=== PATIENT | female | born 1990 | race Caucasian/White ===

== ENCOUNTER 2016-08-06 11:57 | Emergency (ER) | payer SELFPAY ==
[2016-08-06] MEDS ORDERED: ONDANSETRON 4 MG TAB.RAPDIS PO ONE (12:34)
--- NOTE | 2016-08-06 12:36 | ER Document Report ---
ED Medical Screen (RME) - General Stated Complaint: VAGINAL PAIN Notes: Patient complains of severe stomach pain, shaking, vomiting, back pain, vaginal pain, and pain with urination that started about 2 hours ago. Denies fever. Patient does report vaginal discharge. No diarrhea. I have greeted and performed a rapid initial assessment of this patient. A comprehensive ED assessment and evaluation of the patient, analysis of test results and completion of the medical decision making process will be conducted by additional ED providers. TRAVEL OUTSIDE OF THE [place] IN LAST 30 DAYS: No - Related Data Allergies/Adverse Reactions: IV contrast Dye Allergy (Uncoded 08/06/16 12:32) Past Medical History Renal/ Medical History: Reports: Hx Ovarian Cysts. Denies: Hx Peritoneal Dialysis Past Surgical History: Reports: Hx Gynecologic Surgery - Removal R fallopian tube August 2015. Multiple lap surgery for endometriosis Physical Exam - Vital signs Vitals: Temp Pulse Resp BP Pulse Ox 98.6 F 100 20 107/63 97 08/06/16 12:08/06/16 12:08/06/16 12:08/06/16 12:08/06/16 12:29 - Abdominal Inspection: Normal Tenderness: Tender - Diffuse tenderness, pain increased to palpation in the left lower quadrant. Course - Vital Signs Vital signs: Temp Pulse Resp BP Pulse Ox 98.6 F 100 20 107/63 97 08/06/16 12:29 08/06/16 12:29 08/06/16 12:29 08/06/16 12:29 08/06/16 12:29
[2016-08-06 13:07] LABS: ABSOLUTE LYMPHOCYTES (AUTO) 1.1 10^3/uL (0.5-4.7); ABSOLUTE MONOCYTES (AUTO) 0.5 10^3/uL (0.1-1.4); ABSOLUTE NEUT (AUTO) 6.1 10^3/uL (1.7-8.2); BASOPHILS % (AUTO) 0.2 % (0-2); EOSINOPHILS % (AUTO) 0.6 % (0-6); HEMATOCRIT 39.7 % (36.0-47.0); HEMOGLOBIN 13.7 g/dL (12.0-15.5); HGB HCT DIFFERENCE 1.4; LYMPHOCYTES % (AUTO) 14.4 % (13-45); MEAN CORPUSCULAR HEMOGLOBIN 29.6 pg (27.0-33.4); MEAN CORPUSCULAR HGB CONC 34.4 g/dL (32.0-36.0); MEAN CORPUSCULAR VOLUME 86 fl (80-97); RED BLOOD COUNT 4.62 10^6/uL (3.72-5.28); RED CELL DISTRIBUTION WIDTH 12.7 % (11.5-14.0); SEGMENTED NEUTROPHILS % (AUTO) 78.8 % (42-78); WHITE BLOOD COUNT 7.7 10^3/uL (4.0-10.5)
[2016-08-06 13:30] LABS: ALANINE AMINOTRANSFERASE 23 U/L (9-52); ALBUMIN 4.4 g/dL (3.5-5.0); ALKALINE PHOSPHATASE 46 U/L (38-126); ANION GAP 13 (5-19); ASPARTATE AMINO TRANSFERASE 16 U/L (14-36); BILIRUBIN,DIRECT 0.1 mg/dL (0.0-0.4); BILIRUBIN,TOTAL 0.4 mg/dL (0.2-1.3); BLOOD UREA NITROGEN 12 mg/dL (7-20); CALCIUM 9.7 mg/dL (8.4-10.2); CARBON DIOXIDE 28 mmol/L (22-30); CHLORIDE 103 mmol/L (98-107); GLUCOSE 98 mg/dL (75-110); LIPASE 74.1 U/L (23-300); POTASSIUM 4.5 mmol/L (3.6-5.0); SODIUM 143.6 mmol/L (137-145); TOTAL PROTEIN 7.2 g/dL (6.3-8.2)
[2016-08-06 14:25] LABS: AMORPHOUS SEDIMENT,URINE TRACE /HPF; APPEARANCE,URINE CLOUDY; BILIRUBIN,URINE NEGATIVE (NEGATIVE); GLUCOSE, URINE NEGATIVE (NEGATIVE); KETONES,URINE NEGATIVE (NEGATIVE); LEUKOCYTE ESTERASE,URINE NEGATIVE (NEGATIVE); NITRITE,URINE NEGATIVE (NEGATIVE); PROTEIN,URINE NEGATIVE (NEGATIVE); URINE SPECIFIC GRAVITY 1.015; UROBILINOGEN,URINE NEGATIVE mg/dL (<2.0)
[2016-08-06 15:19] LABS: CHLAM PCR NOT DETECTED (NOT DETECT)
[2016-08-06] MEDS ORDERED: HYDROCODONE/ACETAMINOPHEN 5-325 MG TABLET PO ONE (19:41)
--- NOTE | 2016-08-06 21:44 | ER Document Report ---
ED GI/ - General Chief Complaint: Abdominal Pain Stated Complaint: VAGINAL PAIN Mode of Arrival: Ambulatory Information source: Patient Notes: 26-year-old female presents to the emergency department complaining of lower abdominal/pelvic pain that began approximately 11:00 this morning. Patient reports sudden onset of sharp/burning pain to lower pelvic area L>R. Reports had associated nausea and felt like pain radiates to her lower back. Also states had some dysuria which started after the pain. Reports has had some thin whitish foul-smelling vaginal discharge over the last 2 weeks. States was treated for chlamydia approximately 3 months ago but had different symptoms at the time however reports has been sexually active with same partner and is unsure if he has been tested/treated. Denies fever, hematuria, vaginal bleeding , or blood in stool. 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 TRAVEL OUTSIDE OF THE [place] IN LAST 30 DAYS: No - HPI Patient complains to provider of: Dysuria, Pelvic pain, Vaginal discharge Onset: This morning Timing/Duration: Sudden Quality of pain: Burning, Sharp Severity at maximum: Severe Severity in ED: Moderate Pain Level: 2 Vaginal bleeding (Compared to normal period): None Sexual history: Active. denies: New partner, Multiple partners Similar symptoms previously: Yes Recently seen / treated by doctor: No - Related Data Allergies/Adverse Reactions: IV contrast Dye Allergy (Uncoded 08/06/16 12:32) Past Medical History - General Information source: Patient - Social History Smoking Status: Smoker,Current Status Unk Chew tobacco use (# tins/day): No Frequency of alcohol use: Occasional Drug Abuse: None Lives with: Family Family History: Reviewed & Not Pertinent Patient has suicidal ideation: No Patient has homicidal ideation: No Renal/ Medical History: Reports: Hx Ovarian Cysts. Denies: Hx Peritoneal Dialysis Past Surgical History: Reports: Hx Appendectomy, Hx Gynecologic Surgery - Removal R fallopian tube August 2015. Multiple lap surgery for endometriosis - Immunizations Hx Diphtheria, Pertussis, Tetanus Vaccination: Yes Review of Systems - Review of Systems Constitutional: No symptoms reported EENT: No symptoms reported Cardiovascular: No symptoms reported Respiratory: No symptoms reported Gastrointestinal: See HPI Genitourinary: See HPI Female Genitourinary: See HPI Musculoskeletal: No symptoms reported Skin: No symptoms reported Hematologic/Lymphatic: No symptoms reported Neurological/Psychological: No symptoms reported -: Yes All other systems reviewed and negative Physical Exam - Vital signs Vitals: Temp Pulse Resp BP Pulse Ox 98.6 F 100 20 107/63 97 08/06/16 12:29 08/06/16 12:29 08/06/16 12:29 08/06/16 12:29 08/06/16 12:29 - General General appearance: Appears well, Alert In distress: None - HEENT Head: Normocephalic, Atraumatic Eyes: Normal Pupils: PERRL - Respiratory Respiratory status: No respiratory distress Chest status: Nontender Breath sounds: Normal Chest palpation: Normal - Cardiovascular Rhythm: Regular Heart sounds: Normal auscultation Murmur: No Pulses: Normal: Radial Normal capillary refill: Yes - Abdominal Inspection: Normal Distension: No distension Bowel sounds: Normal Tenderness: Tender - Mild tenderness to palpation to mid and left lower abdomen/ pelvic area.. No: McBurney's point, Mcgregor's sign, Guarding, Rebound, Other Organomegaly: No organomegaly - Genitourinary External exam: Normal. No: Lesions, Laceration, Bruising, Vesicles Speculum exam: Cervix closed, Vaginal discharge - Moderate amount of whitish thin discharge. No: Lesions, Vaginal lacerations Vaginal bleeding: None Bimanuel exam: Adnexal tenderness - Mild left. No: Cervical motion tender - Back Back: Normal, Nontender. No: CVA tenderness - Extremities General upper extremity: Normal inspection, Nontender, Normal color, Normal ROM , Normal strength, Normal temperature General lower extremity: Normal inspection, Nontender, Normal color, Normal ROM , Normal strength, Normal temperature, Normal weight bearing - Neurological Neuro grossly intact: Yes Cognition: Normal Orientation: AAOx4 Cecil Coma Scale Eye Opening: Spontaneous Cecil Coma Scale Verbal: Oriented Cecil Coma Scale Motor: Obeys Commands [place] Coma Scale Total: 15 Speech: Normal Motor strength normal: LUE, RUE, LLE, RLE Sensory: Normal - Psychological Associated symptoms: Normal affect, Normal mood - Skin Skin Temperature: Warm Skin Moisture: Dry Skin Color: Normal Course - Re-evaluation Re-evalutation: 08/06/16 21:50 Patient hemodynamically stable, in no distress, afebrile, nontoxic, and appears well-hydrated. Labs unremarkable. UA not suggestive of UTI. HCG negative. Wet mount and physical exam findings suggestive of bacterial vaginosis. Negative Trichomonas and negative urine Chlamydia/gonorrhea. CT scan shows small amount of pelvic free fluid likely physiologic. Patient is very well- appearing with physical exam findings not suggestive of pid or other emergent infectious or WALL SCRAPER/GI etiology at this time. Discussed possible ovarian cyst rupture as one of the possible causes of the pain with patient. Patient appears stable for discharge at this time and agrees with home care, follow-up, and ED return precautions. - Vital Signs Vital signs: Temp Pulse Resp BP Pulse Ox 98.6 F 75 16 112/67 97 08/06/16 22:24 08/06/16 22:24 08/06/16 22:24 08/06/16 22:24 08/06/16 22:24 - Laboratory Result Diagrams: 08/06/16 12:50 08/06/16 12:50 Laboratory results interpreted by me: 08/06/16 12:50 Seg Neutrophils % 78.8 H - Diagnostic Test Radiology reviewed: Image reviewed, Reports reviewed Discharge - Discharge Clinical Impression: Pelvic pain, Bacterial vaginosis Condition: Stable Disposition: HOME, SELF-CARE Instructions: Pelvic Pain ([facility]), Vaginosis, Bacterial ([facility]), Metronidazole ([facility] ), Abdominal Pain ([facility]), Anti-Inflammatory Medication ([facility]) Additional Instructions: Establish care and follow-up with [facility] this week. Return to the Emergency Department for any worsening symptoms or concerns. Prescriptions: Metronidazole 500 mg PO BID 7 Days Naproxen 500 mg PO BIDP PRN #10 tablet PRN Reason: Referrals: [facility] [Provider Group] - Follow up in 3-5 days
[2016-08-06 22:27] VITALS: BP 112/67
[2016-08-06 22:59] LABS: CHLAM PCR NOT DETECTED (NOT DETECT)
== END 2016-08-06 22:24 | disposition home or self-care (01) ==
LOC: ER 11:57
DX: N76.0 Acute vaginitis (principal); B96.89 Other specified bacterial agents as the cause of diseases classified elsewhere; R10.2 Pelvic and perineal pain; R11.0 Nausea; R30.0 Dysuria; Z87.42 Personal history of other diseases of the female genital tract; Z90.79 Acquired absence of other genital organ(s); Z91.041 Radiographic dye allergy status; Z90.49 Acquired absence of other specified parts of digestive tract
CPT/HCPCS: 99284; 36415; 87070; 87205; 87210; 84702; 83690; 85025; 80053; 81001; 87491; 87591; 74176; S0119

== ENCOUNTER 2016-08-18 20:52 | Emergency (ER) | payer SELFPAY ==
[2016-08-18 21:27] VITALS: BP 101/50
[2016-08-18 22:02] LABS: ALANINE AMINOTRANSFERASE 31 U/L (9-52); ALBUMIN 4.6 g/dL (3.5-5.0); ALKALINE PHOSPHATASE 51 U/L (38-126); ANION GAP 15 (5-19); ASPARTATE AMINO TRANSFERASE 19 U/L (14-36); BILIRUBIN,DIRECT 0.1 mg/dL (0.0-0.4); BILIRUBIN,TOTAL 0.4 mg/dL (0.2-1.3); BLOOD UREA NITROGEN 13 mg/dL (7-20); CALCIUM 9.6 mg/dL (8.4-10.2); CARBON DIOXIDE 25 mmol/L (22-30); CHLORIDE 101 mmol/L (98-107); CREATININE RESULT 0.83 mg/dL (0.52-1.25); GLUCOSE 92 mg/dL (75-110); LIPASE 70.9 U/L (23-300); SODIUM 140.6 mmol/L (137-145); TOTAL PROTEIN 7.6 g/dL (6.3-8.2)
[2016-08-18 22:09] LABS: ABSOLUTE LYMPHOCYTES (AUTO) 0.4 10^3/uL (0.5-4.7); ABSOLUTE MONOCYTES (AUTO) 0.6 10^3/uL (0.1-1.4); ABSOLUTE NEUT (AUTO) 4.4 10^3/uL (1.7-8.2); BASOPHILS % (AUTO) 0.3 % (0-2); EOSINOPHILS % (AUTO) 0.3 % (0-6); HEMATOCRIT 38.4 % (36.0-47.0); HEMOGLOBIN 13.1 g/dL (12.0-15.5); HGB HCT DIFFERENCE 0.9; LYMPHOCYTES % (AUTO) 7.5 % (13-45); MEAN CORPUSCULAR HEMOGLOBIN 29.4 pg (27.0-33.4); MEAN CORPUSCULAR HGB CONC 34.2 g/dL (32.0-36.0); MEAN CORPUSCULAR VOLUME 86 fl (80-97); MONOCYTES % (AUTO) 11.1 % (3-13); RED BLOOD COUNT 4.48 10^6/uL (3.72-5.28); RED CELL DISTRIBUTION WIDTH 12.8 % (11.5-14.0); SEGMENTED NEUTROPHILS % (AUTO) 80.8 % (42-78); WHITE BLOOD COUNT 5.4 10^3/uL (4.0-10.5)
[2016-08-19] MEDS ORDERED: KETOROLAC TROMETHAMINE INJ/PF 30 MG/1 ML SDV IV ONE (00:28)
[2016-08-19] MEDS ORDERED: NORMAL SALINE 1000 ML 1,000 ML IV ONE (00:29)
--- NOTE | 2016-08-19 00:33 | ER Document Report ---
ED General - General Chief Complaint: Abdominal Pain Stated Complaint: HEADACHE,ABDOMINAL PAIN, FEVER Notes: Patient is 26-year-old female presents with complaint of fever, headache, sinus pressure, congestion, abdominal pain, vomiting, and back pain. Patient says she had a temp of 102 at home today. Symptoms started today. No abnormal vaginal discharge. No bleeding. No dysuria. She takes no medications. She is otherwise healthy. Has photophobia. - Related Data Allergies/Adverse Reactions: IV contrast Dye Allergy (Uncoded 08/19/16 00:49) Past Medical History - Social History Smoking Status: Unknown if Ever Smoked Frequency of alcohol use: None Drug Abuse: None Family History: Reviewed & Not Pertinent Patient has suicidal ideation: No Patient has homicidal ideation: No Renal/ Medical History: Reports: Hx Ovarian Cysts. Denies: Hx Peritoneal Dialysis Past Surgical History: Reports: Hx Appendectomy, Hx Gynecologic Surgery - Removal R fallopian tube August 2015. Multiple lap surgery for endometriosis - Immunizations Hx Diphtheria, Pertussis, Tetanus Vaccination: Yes Review of Systems - Review of Systems Notes: My Normal Review Basic REVIEW OF SYSTEMS: CONSTITUTIONAL : Fever EENT: Nasal congestion RESPIRATORY: Denies cough, cold, or chest congestion. Denies shortness of breath, difficulty breathing, or wheezing. GASTROINTESTINAL: Denies abdominal pain. Denies nausea, vomiting, or diarrhea. Denies constipation. Last BM: GENITOURINARY: Denies difficulty urinating, painful urination, burning, frequency, or blood in urine.: MUSCULOSKELETAL: Denies neck or back pain or joint pain or swelling. SKIN: Denies rash or skin lesions. HEMATOLOGIC : Denies easy bruising or bleeding.s. NEUROLOGICAL: Denies altered mental status or loss of consciousness. Has a headache. Denies weakness or paralysis or loss of use of either side. Denies problems with gait or speech. Denies sensory or motor loss. PSYCHIATRIC: Denies anxiety or stress or depression. ALL OTHER SYSTEMS REVIEWED AND NEGATIVE. Physical Exam - Vital signs Vitals: Temp Pulse Resp BP Pulse Ox 99.3 F 129 H 16 101/50 L 95 08/18/16 21:23 08/18/16 21:23 08/18/16 21:23 08/18/16 21:23 08/18/16 21:23 - Notes Notes: General Appearance: Well nourished, alert, cooperative, no acute distress, mild to moderate obvious discomfort. Vitals: reviewed, See vital signs table. Head: no swelling or tenderness to the head Eyes: PERRL, EOMI, Conjuctiva clear Mouth: No decreasd moisture Throat: No tonsillar inflammation, No airway obstruction, mild anterior cervical lymphadenopathy. Neck: Supple, no neck tenderness, No thyromegaly Lungs: No wheezing, No rales, No rhonci, No accessory muscle use, good air exchange bilaterally. Heart: Tachycardic rate, Regular rythm, No murmur, no rub Abdomen: Normal BS, soft, No rigidity, No abdominal tenderness, No guarding, no rebound, no abdominal masses, no organomegaly Extremities: strength 5/5 in all extremities, good pulses in all extremities, no swelling or tenderness in the extremities, no edema. Skin: warm, dry, appropriate color, no rash Neuro: speech clear, oriented x 3, normal affect, responds appropriately to questions. Cranial nerves II through XII are intact. Patient has normal gait. Moves all extremities on her own without difficulty. Course - Vital Signs Vital signs: Temp Pulse Resp BP Pulse Ox 99.3 F 129 H 16 101/50 L 95 08/18/16 21:23 08/18/16 21:23 08/18/16 21:23 08/18/16 21:23 08/18/16 21:23 - Laboratory Result Diagrams: 08/18/16 21:30 08/18/16 21:30 Laboratory results interpreted by me: 08/18/16 08/19/16 21:30 00:44 Seg Neutrophils % 80.8 H Lymphocytes % 7.5 L Absolute Lymphocytes 0.4 L Urine Ketones 80 H Urine Blood MODERATE H Urine Ascorbic Acid 40 H - Transfer of Care Notes: 08/19/16 01:18 Patient is feeling some improvement after Toradol. She has received a liter of fluids. Patient is influenza be positive which makes sense in conjunction with her symptoms. She'll be discharged home. She's not septic or toxic appearing. I talked her about Tamiflu about the risks and benefits of the medication. At this time patient does not want the Tamiflu. Patient currently is return to ER she's feeling worse, has recurrent vomiting, difficulty breathing, or high fevers not responding to Tylenol or Motrin. Patient agrees with plan and will be discharged home. Dictation of this chart was performed using voice recognition software; therefore, there may be some unintended grammatical errors. Discharge - Discharge Clinical Impression: Influenza Headache Qualifiers: Headache type: unspecified Headache chronicity pattern: acute headache Intractability: not intractable Qualified Code(s): R51 - Headache Condition: Good Disposition: HOME, SELF-CARE Additional Instructions: Influenza What are conditions that should receive medical attention? The development of difficulty breathing. Lip color changes to blue or purple. Persistent vomiting and unable to keep liquids down with signs of dehydration such as: dizziness when standing, unable to urinate, or if child/infant is crying no tears are noticed. Is less responsive than normal or becomes confused. How do I decrease the spread of flu in my home? Taking care of the sick patient at home: Keep the sick person in a room separate from the common areas of the house. Keep the "sickroom" door closed. If the person with the flu needs to leave the home, they should cover their nose/mouth when coughing or sneezing and wear a disposable (surgical) mask if available. These masks may be available at your local pharmacy, medical supply and hardware store. If the sick person is in common areas of the house, have them wear a surgical mask. If possible, have the sick person use a separate bathroom that should be cleaned daily with a household disinfectant. If you are the caregiver: Avoid being face to face with the sick adult person as much as possible. Try to stay at least 6 feet away and wear a disposable surgical mask when possible. When holding small children who are sick, place their chin on your shoulder so that they will not cough in your face. Wash your hands after you touch the sick person or handle their tissues and laundry. Wear a mask if you leave home, as you may be infected from taking care of someone and not know it yet. Watch yourself and others in the home for flu symptoms and contact your doctor if symptoms occur. NOTE: Antiviral medication used to reduce the symptoms of the flu works only if taken within 48 hours, and best within 24 hours of symptom onset. Household Cleaning, laundry and waste disposal: Tissues and other disposable items used by the sick person should be thrown away in the trash. Wash your hands after touching these used items. No special waste disposal is required. Keep surfaces (especially bedside tables, bathroom surfaces, and toys for children) clean by wiping them down with a safe household disinfectant according to the directions on the product label. Per CDC advice, most people will not receive testing to confirm flu. Also based on the person's health history and onset of symptoms, not all patients will receive prescriptions for antiviral medications. If you have questions related to this, please ask your healthcare provider. For more information, you can call the Centers for Disease Control and Prevention ([employer]) Hotline at 6-295-LUBOneSchool This line is available in Pashto and German, 24 hours a day, 7 days a week. Or www.meQuilibrium or www.cdc.gov Flu-Like Illness Home Instructions: How Flu Spreads The main way that influenza viruses spread is through respiratory droplets of coughs and sneezes. This can happen when someone with the infection coughs or sneezes and the particles fly through the air and land on other people and surfaces. If the person covers their mouth and nose with their hand but does not wash their hands immediately, then these germs are passed onto the next object that they touch. Please rest over the next few days. Please drink lots of fluids. I have prescribed some nausea medicine in case you start feeling very nauseous or have vomiting again. He's return to ER if if intractable vomiting, fevers not responding to Tylenol or Motrin, or if you're feeling worse. Please follow-up with her doctor in 2-3 days for reevaluation. Prescriptions: Ondansetron [Zofran Odt 4 mg Tablet] 1 tab PO Q4H PRN #15 tab.rapdis PRN Reason: For Nausea/Vomiting Forms: Return to Work
[2016-08-19 01:10] LABS: APPEARANCE,URINE SLIGHTLY-CLOUDY; BILIRUBIN,URINE NEGATIVE (NEGATIVE); GLUCOSE, URINE NEGATIVE (NEGATIVE); KETONES,URINE 80 mg/dL (NEGATIVE); LEUKOCYTE ESTERASE,URINE NEGATIVE (NEGATIVE); NITRITE,URINE NEGATIVE (NEGATIVE); PROTEIN,URINE NEGATIVE (NEGATIVE); URINE SPECIFIC GRAVITY 1.024; UROBILINOGEN,URINE NEGATIVE mg/dL (<2.0)
== END 2016-08-19 01:38 | disposition home or self-care (01) ==
LOC: ER 20:52
DX: J11.1 Influenza due to unidentified influenza virus with other respiratory manifestations (principal); R51 Headache; J34.89 Other specified disorders of nose and nasal sinuses; R10.9 Unspecified abdominal pain; R11.10 Vomiting, unspecified; M54.9 Dorsalgia, unspecified; R09.81 Nasal congestion; R50.9 Fever, unspecified; R00.0 Tachycardia, unspecified; H53.149 Visual discomfort, unspecified; Z87.42 Personal history of other diseases of the female genital tract; Z90.49 Acquired absence of other specified parts of digestive tract
CPT/HCPCS: 99284; 96374; 36415; 87070; 87880; 83690; 84703; 85025; 80053; 81001; 87804; J1885; J7030

== ENCOUNTER 2017-02-11 17:48 | Emergency (ER) | payer SELFPAY ==
[2017-02-11 18:03] VITALS: BP 120/63
--- NOTE | 2017-02-11 18:23 | ER Document Report ---
ED Medical Screen (RME) - General Chief Complaint: Pelvic Pain Stated Complaint: ABDOMINAL PAIN Time Seen by Provider: 02/11/17 18:19 Notes: Patient is having lower abdominal pains for the past 3 days. She calls it a "sharp and twisty" pain. It is primarily in the left lower quadrant, not in the right lower quadrant. She feels that her abdomen is distended. Last bowel movement was yesterday. Not drinking a lot of sodas. Patient has no nausea or vomiting or diarrhea. No UTI symptoms. Has not noted a fever. LMP 8/6. Patient feels certain that she is not . Patient went to [facility] last night where they did a pelvic exam and told her everything was okay and sent her home. PMH: Appendectomy, right oophorectomy, 4 surgeries for ovarian cysts, 3 laparoscopic surgeries. History of endometriosis. TRAVEL OUTSIDE OF THE [place] IN LAST 30 DAYS: No - Related Data Allergies/Adverse Reactions: IV contrast Dye Allergy (Uncoded 02/11/17 17:57) Past Medical History - Social History Chew tobacco use (# tins/day): No Frequency of alcohol use: None Drug Abuse: None Renal/ Medical History: Reports: Hx Ovarian Cysts. Denies: Hx Peritoneal Dialysis Past Surgical History: Reports: Hx Appendectomy, Hx Gynecologic Surgery - Removal R fallopian tube August 2015. Multiple lap surgery for endometriosis - Immunizations Hx Diphtheria, Pertussis, Tetanus Vaccination: Yes History of Influenza Vaccine for 02/2017 - 07/2017 Season: No Physical Exam - Vital signs Vitals: Temp Pulse Resp BP Pulse Ox 98.3 F 102 H 18 120/63 100 02/11/17 17:57 02/11/17 17:57 02/11/17 17:57 02/11/17 17:57 02/11/17 17:57 Course - Vital Signs Vital signs: Temp Pulse Resp BP Pulse Ox 98.3 F 102 H 18 120/63 100 02/11/17 17:57 02/11/17 17:57 02/11/17 17:57 10 17:57 02/11/17 17:57
[2017-02-11 19:00] LABS: APPEARANCE,URINE SLIGHTLY-CLOUDY; BILIRUBIN,URINE NEGATIVE (NEGATIVE); GLUCOSE, URINE NEGATIVE (NEGATIVE); KETONES,URINE NEGATIVE (NEGATIVE); LEUKOCYTE ESTERASE,URINE TRACE (NEGATIVE); NITRITE,URINE NEGATIVE (NEGATIVE); PROTEIN,URINE NEGATIVE (NEGATIVE); URINE SPECIFIC GRAVITY 1.005; UROBILINOGEN,URINE NEGATIVE mg/dL (<2.0)
[2017-02-11 19:07] LABS: ABSOLUTE LYMPHOCYTES (AUTO) 1.5 10^3/uL (0.5-4.7); ABSOLUTE MONOCYTES (AUTO) 0.5 10^3/uL (0.1-1.4); ABSOLUTE NEUT (AUTO) 2.6 10^3/uL (1.7-8.2); BASOPHILS % (AUTO) 0.3 % (0-2); HEMATOCRIT 39.2 % (36.0-47.0); HEMOGLOBIN 13.9 g/dL (12.0-15.5); HGB HCT DIFFERENCE 2.5; LYMPHOCYTES % (AUTO) 32.5 % (13-45); MEAN CORPUSCULAR HEMOGLOBIN 30.2 pg (27.0-33.4); MEAN CORPUSCULAR HGB CONC 35.5 g/dL (32.0-36.0); MEAN CORPUSCULAR VOLUME 85 fl (80-97); MONOCYTES % (AUTO) 10.7 % (3-13); RED BLOOD COUNT 4.62 10^6/uL (3.72-5.28); RED CELL DISTRIBUTION WIDTH 12.4 % (11.5-14.0); SEGMENTED NEUTROPHILS % (AUTO) 55.5 % (42-78); WHITE BLOOD COUNT 4.7 10^3/uL (4.0-10.5)
[2017-02-11 19:34] LABS: ALANINE AMINOTRANSFERASE 24 U/L (9-52); ALBUMIN 4.8 g/dL (3.5-5.0); ALKALINE PHOSPHATASE 41 U/L (38-126); ANION GAP 11 (5-19); ASPARTATE AMINO TRANSFERASE 17 U/L (14-36); BILIRUBIN,DIRECT 0.3 mg/dL (0.0-0.4); BILIRUBIN,TOTAL 0.8 mg/dL (0.2-1.3); BLOOD UREA NITROGEN 13 mg/dL (7-20); CALCIUM 9.9 mg/dL (8.4-10.2); CARBON DIOXIDE 29 mmol/L (22-30); CHLORIDE 102 mmol/L (98-107); CREATININE RESULT 0.84 mg/dL (0.52-1.25); GLUCOSE 63 mg/dL (75-110); POTASSIUM 4.2 mmol/L (3.6-5.0); SODIUM 141.8 mmol/L (137-145); TOTAL PROTEIN 7.8 g/dL (6.3-8.2)
[2017-02-11] MEDS ORDERED: KETOROLAC TROMETHAMINE INJ/PF 30 MG/1 ML SDV IV ONE (19:51)
--- NOTE | 2017-02-11 19:59 | ER Document Report ---
ED GI/ - General Chief Complaint: Pelvic Pain Stated Complaint: ABDOMINAL PAIN Time Seen by Provider: 02/11/17 18:19 Mode of Arrival: Ambulatory Information source: Patient Notes: 26 yo female c/o sharp stabbing pain lower left side by the uterus. Started 3 days ago. Similar pain in same area in the past but not as sharp and stabbing. Hx polycystic ovaries and endometriosis. Seen at [facility] ER, did vaginal exam and labs were normal, no bloodwork. Sent home with tylenol and motrin (which causes burning pain). Gynocologist- Dr. Barnes- appt on feb 23, with percocet for endometriosis/ovarian cyst - then was on straight morphine 15mg (cuts in 05/13) last prescription 1 month -lost the bottle, takes as needed, some days without it. Has referral to GI doctor. TRAVEL OUTSIDE OF THE [place] IN LAST 30 DAYS: No - Related Data Allergies/Adverse Reactions: IV contrast Dye Allergy (Uncoded 02/11/17 17:57) Past Medical History - General Information source: Patient - Social History Smoking Status: Never Smoker Chew tobacco use (# tins/day): No Frequency of alcohol use: None Drug Abuse: None Family History: Reviewed & Not Pertinent Patient has suicidal ideation: No Patient has homicidal ideation: No Renal/ Medical History: Reports: Hx Ovarian Cysts. Denies: Hx Peritoneal Dialysis Past Surgical History: Reports: Hx Appendectomy, Hx Gynecologic Surgery - Removal R fallopian tube August 2015. Multiple lap surgery for endometriosis - Immunizations Hx Diphtheria, Pertussis, Tetanus Vaccination: Yes Review of Systems - Review of Systems Constitutional: No symptoms reported EENT: No symptoms reported Cardiovascular: No symptoms reported Respiratory: No symptoms reported Gastrointestinal: No symptoms reported Genitourinary: No symptoms reported Female Genitourinary: See HPI Musculoskeletal: No symptoms reported Skin: No symptoms reported Hematologic/Lymphatic: No symptoms reported Neurological/Psychological: No symptoms reported Physical Exam - Vital signs Vitals: Temp Pulse Resp BP Pulse Ox 98.3 F 102 H 18 120/63 100 02/11/17 17:57 02/11/17 17:57 02/11/17 17:57 02/11/17 17:57 02/11/17 17:57 Interpretation: Normal - General General appearance: Appears well, Alert In distress: None - HEENT Head: Normocephalic, Atraumatic Eyes: Normal Pupils: PERRL Neck: Supple - Respiratory Respiratory status: No respiratory distress Chest status: Nontender Breath sounds: Normal Chest palpation: Normal - Cardiovascular Rhythm: Regular Heart sounds: Normal auscultation Murmur: No - Abdominal Inspection: Normal Distension: No distension Bowel sounds: Normal Tenderness: Tender - Left pelvis Organomegaly: No organomegaly - Back Back: Normal, Nontender. No: CVA tenderness - Extremities General upper extremity: Normal inspection, Nontender, Normal color, Normal ROM , Normal temperature General lower extremity: Normal inspection, Nontender, Normal color, Normal ROM , Normal temperature, Normal weight bearing. No: Curly's sign - Neurological Neuro grossly intact: Yes Cognition: Normal Orientation: AAOx4 [place] Coma Scale Eye Opening: Spontaneous Cecil Coma Scale Verbal: Oriented Cecil Coma Scale Motor: Obeys Commands [place] Coma Scale Total: 15 Speech: Normal Motor strength normal: LUE, RUE, LLE, RLE Sensory: Normal - Psychological Associated symptoms: Normal affect, Normal mood - Skin Skin Temperature: Warm Skin Moisture: Dry Skin Color: Normal Skin irregularity: negative: Rash Course - Re-evaluation Re-evalutation: 02/12/17 05:04 late entry: the ultrasound showed a left ovarian cyst. No ovarian torsion. - Vital Signs Vital signs: Temp Pulse Resp BP Pulse Ox 98.3 F 102 H 18 120/63 100 02/11/17 17:57 02/11/17 17:57 02/11/17 17:57 02/11/17 17:57 02/11/17 17:57 - Laboratory Result Diagrams: 02/11/17 18:50 02/11/17 18:50 Laboratory results interpreted by me: 02/11/17 02/11/17 18:35 18:50 Glucose 63 L Ur Leukocyte Esterase TRACE H Discharge - Discharge Clinical Impression: Left ovarian cyst, Hx of endometriosis Condition: Good Disposition: HOME, SELF-CARE Instructions: Ovarian Cyst ([facility]), Pelvic Pain ([facility]) Additional Instructions: call and try to see your obgyn doctor before february 23 copy of labs and us given to you Please complete the patient satisfaction survey if you get one, and return it.. If you do not receive a survey, then you can go to the [facility] website, [email or web address] and place your comments about your very good care. Thank you very much. It was a pleasure being your medical provider today. Prescriptions: Oxycodone HCl/Acetaminophen [Percocet 5-325 mg Tablet] 1 tab PO ASDIR PRN #15 tablet PRN Reason:
[2017-02-11] MEDS ORDERED: MORPHINE SULFATE 10 MG/ML INJ IV ONE (20:14)
[2017-02-11] MEDS ORDERED: ONDANSETRON 4 MG TAB.RAPDIS PO ONE (20:15)
--- NOTE | 2017-02-11 21:29 | RADIOLOGY REPORT (SQ) ---
EXAM DESCRIPTION: U/S NON OB PEL W/DOPPLER COMPLETED DATE/TIME: 02/11/2017 9:16 pm REASON FOR STUDY: LLQ pain, Hx ovarian cysts with surgery COMPARISON: None. TECHNIQUE: Dynamic and static grayscale images acquired of the pelvis via transabdominal approach an d recorded on PACS. Additional selected color Doppler and spectral images recorded. LIMITATIONS: None. FINDINGS: UTERUS: Contour normal. No mass. ENDOMETRIAL STRIPE: 10 x 5 x 5 mm free fluid collected at the fundal portion of the endometrium. CERVIX: No nabothian cysts. RIGHT OVARY: No abnormal masses. RIGHT OVARY DOPPLER: Normal arterial vascular flow without evidence for torsion. LEFT OVARY: 2.2 cm luteal cyst. LEFT OVARY DOPPLER: Normal arterial vascular flow without evidence for torsion. FREE FLUID: Small amount of endometrial and cul-de-sac free fluid. OTHER: No other significant finding. MEASUREMENTS: UTERUS: 9.1 x 5.7 x 4.6 cm ENDOMETRIAL STRIPE: 1.1 cm RIGHT OVARY: 3 x 2 x 2 cm LEFT OVARY: 4 x 3 x 3 cm IMPRESSION: 10 x 5 x 5 mm free fluid collected at the fundal portion of the endometrium. Left ovarian 2.2 cm luteal cyst. TECHNICAL DOCUMENTATION: JOB ID: [id number] [employer]- All Rights Reserved
[2017-02-11] MEDS ORDERED: HYDROCODONE/ACETAMINOPHEN 5-325 MG 6 TAB/DSPK PO PRN (22:23)
== END 2017-02-11 22:34 | disposition home or self-care (01) ==
LOC: ER 17:48
DX: R10.2 Pelvic and perineal pain (principal); R10.9 Unspecified abdominal pain; N83.202 Unspecified ovarian cyst, left side; Z91.041 Radiographic dye allergy status
CPT/HCPCS: 99284; 96374; 96375; 36415; 83690; 84703; 85025; 80053; 81001; 76856; 93976; S0119; J1885; J2270